=== PATIENT | female | born 1965 | race Caucasian/White ===

== ENCOUNTER 2020-11-02 17:49 | Outpatient (REF) | payer BC, SELFPAY | END 2020-11-02 17:50 | disposition home or self-care (01) | LOC: HO.LAB 17:49 | PROVIDERS: Visit Provider Internal Medicine | DX: Z20.828 Contact with and (suspected) exposure to other viral communicable diseases (principal) | CPT/HCPCS: C9803; U0003 ==

== ENCOUNTER 2022-01-10 17:59 | Emergency (ER) | payer BC, SELFPAY ==
--- NOTE | ~2022-01-10 | XR_ITS ---
EXAMINATION: XR FOOT, LEFT CLINICAL INFORMATION: Swelling with painful ambulation COMPARISON: None TECHNIQUE: AP, lateral, and oblique views of the left foot. FINDINGS: The bones and soft tissues are unremarkable. A small plantar calcaneal spur is present. No fracture. Alignment is anatomic. Joint spaces are maintained. XR/XR foot LT 2V IMPRESSION: No acute abnormality is seen. There is a small plantar calcaneal spur.
[2022-01-10 19:18] VITALS: BP 120/86; PULSE 71; RESP 14; TEMP 36.8; O2SAT 99; BMI 29.1
--- NOTE | 2022-01-10 20:37 | ED.EXTPRO ---
HPI - Extremity Problem General Chief complaint: Extremity Problem Stated complaint: L foot swelling INJ Time Seen by Provider: 01/10/22 20:37 Source: patient Mode of arrival: ambulatory Limitations: no limitations History of Present Illness HPI Narrative: Patient is a 56 year old female presenting to the emergency department today with left foot pain. Patient states that the top of her left foot struck the bed frame and is now painful. Patient denies hitting anything else in the incident. Patient denies any loss of consciousness with the incident.Patient denies any dizziness, lightheadedness, abdominal pain, nausea, vomiting, fever, chills, blurry vision, double vision, loss of vision, chest pain, difficulty breathing, shortness of breath, back pain, night sweats, pain with urination, increased urinary frequency, increased urinary urgency, blood in her urine or stool, syncope or a near syncopal episode, bowel incontinence, bladder incontinence, bowel retention, bladder retention, or any other complaints at this time. MD Complaint: extremity pain Onset (ago): hour(s) Pain Consistency: intermittent Location: left and other (foot) Related Data Allergies Allergy/AdvReac Type Severity Reaction Status Date / Time No Known Allergies Allergy Unverified 07/29/20 18:19 Review of Systems Constitutional: Constitutional: Reports no additional constitutional complaints, Denies chills, Denies fever(s) and Denies night sweats Eyes: Eyes: Reports no additional eye complaints, Denies blurry vision, Denies change in vision, Denies diplopia, Denies eye discharge, Denies loss of vision and Denies eye pain ENT: Denies dizziness Cardiovascular: Cardiovascular: Reports no additional cardiovascular complaints, Denies chest pain, Denies lightheadedness, Denies Loss of Consciousness and Denies dyspnea Respiratory: Respiratory: Reports no additional respiratory complaints and Denies dyspnea Gastrointestinal: Gastrointestinal: Reports no additional gastrointestinal complaints, Denies abdominal pain, Denies melena, Denies hematochezia, Denies change in bowel habits and Denies change in stool character Genitourinary: Genitourinary: Denies hematuria, Denies urinary frequency, Denies dysuria, Denies urinary incontinence, Denies urinary hesitancy and Denies urinary urgency Musculoskeletal: Musculoskeletal: Reports no additional musculoskeletal complaints, Denies numbness and Denies tingling Comments: left foot pain Neurologic: Denies dizziness, Denies loss of vision, Denies numbness and Denies tingling Psychiatric: Psychiatric: Reports no additional psychiatric complaints Endocrine: Endocrine: Reports no additional endocrine complaints Hematologic/Lymphatic: Hematologic/Lymphatic: Reports no additional hematologic/lymphatic complaints Allergic/Immunologic: Allergic/Immunologic: Reports no additional allergic/immunologic complaints PMFSH Past Medical History Attestation statement: The following information was validated with the patient. Source: old records reviewed Social History Social History Advance Directives: No Patient : No Physical Exam Vital Signs: Vital Signs: Last Vital Signs Temp 98.3 F 01/10/22 19:18 Pulse 71 01/10/22 19:18 Resp 14 01/10/22 19:18 BP 120/86 01/10/22 19:18 Pulse Ox 99 01/10/22 19:18 BMI result Body Mass Index 29.1 Const: General: cooperative, no acute distress, alert and awake Nutritional Appearance: well nourished Orientation/consciousness: patient oriented x3 Limitations: no limitations HENMT: Head: Yes normal to inspection and Yes atraumatic Ears: hearing grossly normal bilaterally and external ears normal General nose exam: Normal external nose present, no nasal discharge noted and no epistaxis Face and sinus: Yes normal facial exam, No abrasion and No laceration Mouth: Normal oral and palatal mucosa present, no drooling and no muffled voice Eyes: General: appearance normal, both eyes and all related structures Periorbital: periorbital findings normal Eyelids: Yes eyelids normal Conjunctivae: conjunctivae normal Pupils: Equal, round and reactive pupils present EOM: EOMs intact bilaterally Neck: Neck: Yes normal visual inspection, Yes full ROM and Yes no lymphadenopathy Chest: Chest palpation & inspection: normal inspection of the chest Resp: Effort & Inspection: normal respiratory effort and able to speak in complete sentences Auscultation: clear to auscultation bilaterally Cardio: Rate: regular rate Rhythm: regular rhythm GI: Inspection: Yes normal to inspection Neuro: General: patient oriented x3 and moves all extremities Cranial nerves: Yes Equal, round and reactive pupils present Cognition (Neuro): normal cognition Motor exam (neuro): 5/5 motor strength present throughout Sensory Exam: Normal double simultaneous stimulation for sensation Coordination: [id number] test normal Extrem: General: Yes normal to inspection, Yes full ROM and Yes capillary refill normal Psych: Appearance: grossly normal Mental Status: mental status grossly normal Affect: normal affect Attitude: cooperative Thought process: Normal thought process present Thought content: Normal thought content present Insight: Good insight present (Psych) MDM - Extremity (Nontraumatic) MDM Narrative Medical decision making narrative: Patient is a 56 year old female presenting to the emergency department today with left foot pain. Patient's physical exam was unremarkable. Patient's left foot x-ray showed no acute process. I explained my physical exam findings as well as all test results to the patient. I answered all questions asked by the patient. I stressed the importance of the patient taking her medication as prescribed. I stressed the importance of the patient following up with her primary care provider and an orthopedist as needed. I stressed the importance of the patient returning to the emergency department immediately if her symptoms were to worsen or if she were to develop any dizziness, shortness of breath, difficulty breathing, chest pain, blurry vision, loss of vision, nausea, vomiting, abdominal pain, fever, chills, back pain, or any other complaints. Patient verbalized agreement and understanding with this treatment plan and discharge. Differential Diagnosis Differential diagnosis: Unlikely gout (fracture, sprain, strain) Medical Records Attestation: I reviewed the patient's medical records. Imaging Data Left foot x-ray: Attestation: I personally reviewed and interpreted this imaging study as follows: Radiologist's impression: EXAMINATION: XR FOOT, LEFT CLINICAL INFORMATION: Swelling with painful ambulation? COMPARISON: None? TECHNIQUE: AP, lateral, and oblique views of the left foot. FINDINGS: The bones and soft tissues are unremarkable. A small plantar calcaneal spur is present. No fracture. Alignment is anatomic. Joint spaces are maintained.? XR/XR foot LT 2V IMPRESSION: No acute abnormality is seen. There is a small plantar calcaneal spur. Dictated By: SEBASTIEN MCKEON MD Signed By: Electronically signed by SEBASTIEN MCKEON MD 01/10/221947 Discharge Plan Discharge Clinical Impression: Foot pain, left Patient Disposition: Home, Self-Care Instructions: Foot Contusion (ED) Additional Instructions: Call to schedule a follow up appointment with an Orthopedic provider. Follow up with your primary care provider. Return to the emergency department immediately if your symptoms worsen or if you develop any dizziness, shortness of breath, difficulty breathing, chest pain, blurry vision, loss of vision, nausea, vomiting, abdominal pain, fever, chills, back pain, or any other complaints. Referrals: Carolina Grimes MD [Primary Care Provider] - 2 days Jose Mendoza MD [Physician] - 01/17/22 Stand Alone Forms: Work/School Release Interventions: ED Discharge Assessment Last Done: 01/10/22 20:49 Discharge Date/Time: 01/10/22 21:02 Print Language: Colombian
== END 2022-01-10 21:02 | disposition home or self-care (01) ==
PROVIDERS: Emergency Provider Emergency Medicine Emergency Medical Services; PCP Family Medicine
DX: R60.0 Localized edema (principal); M79.672 Pain in left foot
CPT/HCPCS: 73620; 99283